=== PATIENT | female | born 1975 | race Hispanic/Latino ===

== ENCOUNTER 2019-12-02 12:30 | Emergency (ER) | payer BC ==
--- NOTE | 2019-12-02 14:53 | ER ---
Nurse's Notes [facility] Name: Magaly Pacheco Age: 44 yrs Sex: Female : 1975 Arrival Date: 12/02/2019 Time: 12:32 Bed 17 Private MD: Benjamin Sullivan Diagnosis: Acute upper respiratory infection, unspecified;Other viral enteritis Presentation: 12/02 13:01 Presenting complaint: Patient states: Cough and congestion x 1 week, Diarrhea and ca1 headaches x 4 days, fever and chills on and off few days ago. Transition of care: patient was not received from another setting of care. Onset of symptoms was December 02, 2019. Risk Assessment: Do you want to hurt yourself or someone else? Patient reports no desire to harm self or others. Initial Sepsis Screen: Does the patient meet any 2 criteria? No. Patient's initial sepsis screen is negative. Does the patient have a suspected source of infection? No. Patient's initial sepsis screen is negative. Care prior to arrival: None. 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 - Coronavirus screen:: The patient has NOT traveled to [place] in the past 14 days. The patient has NOT had contact with known/suspected case of Coronavirus?. - Social history:: Smoking status: Patient denies any tobacco usage or history of. - Ebola Screening: : Patient negative for fever greater than or equal to 101.5 degrees Fahrenheit, and additional compatible Ebola Virus Disease symptoms Patient denies exposure to infectious person Patient denies travel to an Ebola-affected area in the 21 days before illness onset No symptoms or risks identified at this time. Screenin:09 Abuse screen: Denies threats or abuse. Nutritional screening: No deficits noted. rb1 Tuberculosis screening: No symptoms or risk factors identified. Fall Risk None identified. Assessment: 13:09 General: Appears in no apparent distress. comfortable, Behavior is calm, cooperative, rb1 Reports fever for. Pain: Complains of pain in head Pain currently is 8 out of 10 on a pain scale. Pain began x 4 days. Neuro: Level of Consciousness is awake, alert, obeys commands, Oriented to person, place, time, situation. Neuro: Reports headache frontal area. Cardiovascular: Capillary refill < 3 seconds is brisk in bilateral fingers. Respiratory: Reports cough that is productive, Airway is patent Respiratory effort is even, unlabored, Respiratory pattern is regular, symmetrical. GI: Reports diarrhea. : No signs and/or symptoms were reported regarding the genitourinary system. Derm: Skin is pink, warm \T\ dry. 14:00 Reassessment: Patient appears in no apparent distress at this time. No changes from rb1 previously documented assessment. 15:00 Reassessment: Patient appears in no apparent distress at this time. Patient and/or rb1 family updated on plan of care and expected duration. Pain level reassessed. Patient is alert, oriented x 3, equal unlabored respirations, skin warm/dry/pink. Patient denies pain at this time. Vital Signs: 13:03 BP 135 / 80; Pulse 83; Resp 16 S; Temp 98.1(O); Pulse Ox 96% on R/A; Weight 122.47 kg ca1 (R); Height 5 ft. 4 in. (162.56 cm) (R); Pain 6/10; 14:00 BP 138 / 82; Pulse 81; Resp 17; Pulse Ox 99% on R/A; rb1 15:00 BP 133 / 75; Pulse 79; Resp 18; Pulse Ox 100% on R/A; Pain 0/10; rb1 13:03 Body Mass Index 46.34 (122.47 kg, 162.56 cm) ca1 ED Course: 12:32 Patient arrived in ED. rg4 12:32 Benjamin Sullivan MD is Private Physician. rg4 13:02 Triage completed. ca1 13:03 Arm band placed on right wrist. ca1 13:09 Patient has correct armband on for positive identification. Bed in low position. Call rb1 light in reach. Side rails up X 1. Pulse ox on. NIBP on. 13:11 Efraín Prasad MD is Attending Physician. tw4 13:14 Debra Howell, RN is Primary Nurse. rb1 13:29 Flu Sent. rb1 13:29 Strep Sent. rb1 14:50 Benjamin Sullivan MD is Referral Physician. tw4 15:08 No provider procedures requiring assistance completed. Patient did not have IV access rb1 during this emergency room visit. Administered Medications: No medications were administered Outcome: 14:51 Discharge ordered by . tw4 15:08 Patient left the ED. rb1 15:08 Discharged to home ambulatory, with family. rb1 15:08 Condition: stable 15:08 Discharge instructions given to patient, Instructed on discharge instructions, follow up and referral plans. medication usage, Demonstrated understanding of instructions, follow-up care, medications, Prescriptions given X 3. Signatures: Debra Howell, RN RN rb1 Aylin Butcher rg4 Efraín Prasad MD MD tw4 Gardenia Mckenna RN RN ca1
--- NOTE | 2019-12-02 14:54 | EDPHYS ---
Physician Documentation [facility] Name: Magaly Pacheco Age: 44 yrs Sex: Female : 1975 Arrival Date: 12/02/2019 Time: 12:32 Bed 17 Private MD: Benjamin Sullivan ED Physician Efraín Prasad HPI: 12/02 14:01 This 44 yrs old Female presents to ER via Ambulatory with complaints of Cough, tw4 Diarrhea, Dizziness. 14:01 The patient or guardian reports cough, that is constant. Onset: The symptoms/episode tw4 began/occurred today. Severity of symptoms: At their worst the symptoms were moderate, in the emergency department the symptoms are unchanged. Modifying factors: The symptoms are alleviated by nothing, the symptoms are aggravated by nothing. The patient has not experienced similar symptoms in the past. 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 - Coronavirus screen:: The patient has NOT traveled to [place] in the past 14 days. The patient has NOT had contact with known/suspected case of Coronavirus?. - Social history:: Smoking status: Patient denies any tobacco usage or history of. - Ebola Screening: : Patient negative for fever greater than or equal to 101.5 degrees Fahrenheit, and additional compatible Ebola Virus Disease symptoms Patient denies exposure to infectious person Patient denies travel to an Ebola-affected area in the 21 days before illness onset No symptoms or risks identified at this time. ROS: 14:01 Constitutional: Negative for fever, chills, and weight loss, Eyes: Negative for injury, tw4 pain, redness, and discharge, Cardiovascular: Negative for chest pain, palpitations, and edema, Abdomen/GI: Negative for abdominal pain, nausea, vomiting, diarrhea, and constipation, Back: Negative for injury and pain, MS/Extremity: Negative for injury and deformity, Skin: Negative for injury, rash, and discoloration. 14:01 Respiratory: Positive for cough, Negative for dyspnea on exertion, hemoptysis, orthopnea, pleurisy, shortness of breath, sputum production. Exam: 14:01 Constitutional: This is a well developed, well nourished patient who is awake, alert, tw4 and in no acute distress. Head/Face: Normocephalic, atraumatic. Chest/axilla: Normal chest wall appearance and motion. Nontender with no deformity. No lesions are appreciated. Cardiovascular: Regular rate and rhythm with a normal S1 and S2. No gallops, murmurs, or rubs. Normal PMI, no JVD. No pulse deficits. Respiratory: Lungs have equal breath sounds bilaterally, clear to auscultation and percussion. No rales, rhonchi or wheezes noted. No increased work of breathing, no retractions or nasal flaring. Abdomen/GI: Soft, non-tender, with normal bowel sounds. No distension or tympany. No guarding or rebound. No evidence of tenderness throughout. Skin: Warm, dry with normal turgor. Normal color with no rashes, no lesions, and no evidence of cellulitis. MS/ Extremity: Pulses equal, no cyanosis. Neurovascular intact. Full, normal range of motion. Neuro: Awake and alert, GCS 15, oriented to person, place, time, and situation. Cranial nerves II-XII grossly intact. Motor strength 5/5 in all extremities. Sensory grossly intact. Cerebellar exam normal. Normal gait. Vital Signs: 13:03 BP 135 / 80; Pulse 83; Resp 16 S; Temp 98.1(O); Pulse Ox 96% on R/A; Weight 122.47 kg ca1 (R); Height 5 ft. 4 in. (162.56 cm) (R); Pain 6/10; 14:00 BP 138 / 82; Pulse 81; Resp 17; Pulse Ox 99% on R/A; rb1 15:00 BP 133 / 75; Pulse 79; Resp 18; Pulse Ox 100% on R/A; Pain 0/10; rb1 13:03 Body Mass Index 46.34 (122.47 kg, 162.56 cm) ca1 MDM: 13:11 Patient medically screened. tw4 20:09 Differential Diagnosis: Obstructed Airway Bronchitis Influenza Allergic Rhinitis. Data tw4 reviewed: vital signs, nurses notes. Data reviewed: lab test result(s), Flu: negative. Data interpreted: Pulse oximetry: Interpretation: normal. Counseling: I had a detailed discussion with the patient and/or guardian regarding: the historical points, exam findings, and any diagnostic results supporting the discharge/admit diagnosis. Special discussion: I discussed with the patient/guardian in detail that at this point there is no indication for admission to the hospital. It is understood, however, that if the symptoms persist or worsen the patient needs to return immediately for re-evaluation. 12/02 13:21 Order name: Flu tw4 12/02 13:21 Order name: Strep tw4 12/02 13:54 Order name: Throat Culture EDMS Administered Medications: No medications were administered Disposition: 12/02/19 14:51 Discharged to Home. Impression: Acute upper respiratory infection, unspecified, Other viral enteritis. - Condition is Stable. - Discharge Instructions: Food Choices to Help Relieve Diarrhea, Adult, Upper Respiratory Infection, Pediatric. - Prescriptions for Tessalon Perles 100 mg Oral Capsule - take 1 capsule by ORAL route every 8 hours As needed; 15 capsule. Lomotil 2.5- 0.025 mg Oral Tablet - take 2 tablet by ORAL route once daily As needed; 20 tablet. Guaifenesin AC 10- 100 mg/5 mL Oral Liquid - take 10 milliliter by ORAL route every 4 hours As needed; 240 milliliter. - Medication Reconciliation Form, Thank You Letter, Antibiotic Education, Prescription Opioid Use form. - Follow up: Benjamin Sullivan MD; When: Upon discharge from the Emergency Department; Reason: If symptoms return, Recheck today's complaints, Continuance of care, Re-evaluation by your physician. - Problem is new. - Symptoms have improved. Signatures: Dispatcher [employer] EDMS Debra Howell RN RN rb1 Efraín Prasad MD MD tw4 Gardenia Mckenna RN RN ca1 Corrections: (The following items were deleted from the chart) 14:52 14:51 12/02/2019 14:51 Discharged to Home. Impression: Acute upper respiratory tw4 infection, unspecified. Condition is Stable. Forms are Medication Reconciliation Form, Thank You Letter, Antibiotic Education, Prescription Opioid Use. Follow up: Benjamin Sullivan; When: Upon discharge from the Emergency Department; Reason: If symptoms return, Recheck today's complaints, Continuance of care, Re-evaluation by your physician. Problem is new. Symptoms have improved. tw4 15:08 14:52 12/02/2019 14:51 Discharged to Home. Impression: Acute upper respiratory rb1 infection, unspecified; Other viral enteritis. Condition is Stable. Forms are Medication Reconciliation Form, Thank You Letter, Antibiotic Education, Prescription Opioid Use. Follow up: Benjamin Sullivan; When: Upon discharge from the Emergency Department; Reason: If symptoms return, Recheck today's complaints, Continuance of care, Re-evaluation by your physician. Problem is new. Symptoms have improved. tw4
[2019-12-02 15:56] VITALS: BP 135/80; TEMP 98.1; O2SAT 96
== END 2019-12-02 15:08 | disposition home or self-care (01) ==
LOC: ER 12:30
DX: J06.9 Acute upper respiratory infection, unspecified (principal); A08.39 Other viral enteritis; F41.9 Anxiety disorder, unspecified
CPT/HCPCS: 87070; 87081; 87804; 99283

== ENCOUNTER 2022-10-09 17:23 | Emergency (ER) | payer OTHER ==
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
[2022-10-09] MEDS ORDERED: KETOROLAC 30 MG/ML INJ ONE (20:11)
[2022-10-09 20:29] VITALS: TEMP 98.1
[2022-10-09 20:30] VITALS: BP 138/99; O2SAT 100
== END 2022-10-09 20:24 | disposition home or self-care (01) ==
LOC: ER 17:23
DX: S29.012A Strain of muscle and tendon of back wall of thorax, initial encounter (principal); S39.012A Strain of muscle, fascia and tendon of lower back, initial encounter
CPT/HCPCS: 70450; 72100; 72125; 96372; 99284